=== PATIENT | male | born 1975 | race Two or more races ===

== ENCOUNTER 2025-02-26 13:46 | Outpatient (REF) | payer OTHER, SELFPAY ==
--- NOTE | ~2025-02-26 | XR_ITS ---
EXAMINATION: XR KNEE 3 VIEWS RIGHT HISTORY: M25.569 - Pain in unspecified knee COMPARISON: There are no prior studies available for comparison. FINDINGS: Standing AP views of both knees and additional lateral and sunrise patellar views of the right knee are submitted. Osseous mineralization is normal. There is no fracture or dislocation. There is mild to moderate osteoarthritis of the patellofemoral compartment, with joint space narrowing and osteophyte formation. The soft tissues are unremarkable. There is no joint effusion. XR/XR knee RT 3V IMPRESSION: Mild to moderate osteoarthritis of the patellofemoral compartment. Electronically signed by: Nas Adair MD 02/27/2025 08:31 AM EDT
--- OUTSIDE RECORDS SUMMARY | 2025-02-27 14:07 | XMS_ITS | Clinical Summary ---
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
== END 2025-02-26 13:47 | disposition home or self-care (01) ==
LOC: HO.HOSX 13:46
PROVIDERS: Visit Provider Physician Assistant
DX: M25.561 Pain in right knee (principal)
CPT/HCPCS: 73562

== ENCOUNTER 2025-02-26 14:30 | Outpatient (AMB) | payer OTHER, SELFPAY ==
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
[2025-02-26 14:48] VITALS: BMI 42.5
--- OUTSIDE RECORDS SUMMARY | 2025-02-26 17:13 | XMS_ITS | Clinical Summary ---
Author Organization Patient Business Ser [facility] Address [address] [place] [address] Care Team Providers Care Newsagent Name Role Phone Unavailable Primary Care Provider Unavailabl e Social History Tobacco Use Types Packs/Day Years Used Date Smoking Tobacco: Never Assessed Sex and Gender Information Value Date Recorded Sex Assigned at Not on file Legal Sex Male 12:59 AM EST Gender Identity Not on file Sexual Orientation Not on file Plan of Treatment Health Maintenance Due Date Last Done Comments DTaP,Tdap,and Td Vaccines (1 - Tdap) 1996 Hepatitis B Vaccines (1 of 3 - 19+ 3-dose series) 1996 COVID-19 Vaccine (2023-2 5 season) 2024 Cholesterol Screening (Lipid Panel) 09/13/2024 Colorectal Cancer Screening: Colonoscopy 09/13/2024 Depression Screening 09/13/2024 HIV Screening 09/13/2024 Hepatitis C Screening 09/13/2024 Social Influencers of Health Screening 09/13/2024 Influenza Vaccine (Season Ended) 2025 HIB Vaccines Aged Out No longer eligi ble based on patient's age to complete this topic HPV Vaccines Aged Out No longer eligi ble based on patient's age to complete this topic Hepatitis A Vaccines Aged Out No long er eligible based on patient's age to complete this topic IPV Vaccines Aged Out No longer eligi ble based on patient's age to complete this topic MMR Vaccines Aged Out No longer eligi ble based on patient's age to complete this topic Meningococcal ACWY Vaccine Aged Out N o longer eligible based on patient's age to complete this topic Meningococcal B Vaccine Aged Out No l onger eligible based on patient's age to complete this topic Pneumococcal Vaccine: Pediat rics (0 to 5 Years) and At-Risk Patients (6 to 64 Years) Aged Out No longer eligible b ased on patient's age to complete this topic RSV Immunization Patients Un miguel 20 months Aged Out No longer eligible b ased on patient's age to complete this topic Varicella Vaccines Aged Out No longer eligible based on patient's age to complete this topic
== END 2025-02-26 15:05 | disposition home or self-care (01) ==
LOC: HO.HOS 14:30
PROVIDERS: Visit Provider Physician Assistant
DX: S80.01XA Contusion of right knee, initial encounter (principal)
CPT/HCPCS: 99203

== ENCOUNTER → 2025-02-26 14:32 | Outpatient (BNV) | payer OTHER, SELFPAY | PROVIDERS: Visit Provider Radiology Diagnostic Radiology | DX: M17.11 Unilateral primary osteoarthritis, right knee (principal) | CPT/HCPCS: 73562 ==

== ENCOUNTER 2025-04-07 19:22 | Outpatient (REF) | payer OTHER, SELFPAY ==
--- NOTE | ~2025-04-07 | MR_ITS ---
EXAMINATION: MRI RIGHT KNEE WITHOUT CONTRAST HISTORY: S80.01XA - Contusion of right knee, initial encounter COMPARISON: Correlation is made with plain films of the right knee dated 02/26/2025. TECHNIQUE: Coronal T1 and fat-suppressed proton density, sagittal proton density and fat-suppressed proton density, and axial fat suppressed T2 weighted MR images of the right knee were obtained. FINDINGS: Bone marrow: Bone marrow signal intensity is normal. Joint effusion: There is no joint effusion. Julien's cyst: There is no Julien's cyst. Articular cartilage: There is moderate to severe osteoarthritis of the patellofemoral compartment with cartilage loss and small osteophyte formation. Muscles/soft tissues: The visualized muscles demonstrate normal signal intensity. There is a 3.6 x 1.7 x 1.5 cm multiseptated cystic structure in the popliteal fossa which likely represents a ganglion cyst. Anterior cruciate ligament: Intact Posterior cruciate ligament: Intact Medial collateral ligament: Intact Lateral collateral ligament: Intact Medial meniscus: Intact Lateral meniscus: Intact Flexor mechanism: The popliteus, gastrocnemius, and hamstring tendons are intact. Quadriceps tendon: Intact Patellar tendon: Intact Patellar retinacula: Intact MR/MR knee RT wo con IMPRESSION: 1. Moderate to severe osteoarthritis of the patellofemoral compartment. 2. 3.6 x 1.7 x 1.5 cm probable popliteal fossa ganglion cyst. Electronically signed by: Nas Adair MD 04/08/2025 08:11 AM EDT
== END 2025-04-07 19:23 | disposition home or self-care (01) ==
LOC: HO.MRI 19:22
PROVIDERS: Visit Provider Physician Assistant
DX: S80.01XA Contusion of right knee, initial encounter (principal)
CPT/HCPCS: 73721

== ENCOUNTER → 2025-04-07 19:38 | Outpatient (BNV) | payer OTHER, SELFPAY | PROVIDERS: Visit Provider Radiology Diagnostic Radiology | DX: M17.11 Unilateral primary osteoarthritis, right knee (principal) | CPT/HCPCS: 73721 ==

== ENCOUNTER 2025-06-02 10:00 | Outpatient (AMB) | payer OTHER, SELFPAY ==
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
[2025-06-02 10:10] VITALS: BMI 42.5
--- OUTSIDE RECORDS SUMMARY | 2025-06-02 10:54 | XMS_ITS | Clinical Summary ---
Author Organization Patient Business Ser [facility] Address [address] [place] [address] Care Team Providers Care Manager Harbor Name Role Phone Unavailable Primary Care Provider [...] Influencers of Health Screening 09/13/2024 Influenza Vaccine (#1) 2025 HIB Vaccines Aged Out No longer [...] 5 Years) and At-Risk Patients (6 to 49 Years) Aged Out No longer eligible b ased on patient's age to complete this topic RSV Immunization Patients Un miguel 20 months Aged Out No longer eligible b ased on patient's age to complete this topic Varicella Vaccines Aged Out No longer eligible based on patient's age to complete this topic
== END 2025-06-02 10:20 | disposition home or self-care (01) ==
LOC: HO.HOS 10:00
PROVIDERS: Visit Provider Physician Assistant
DX: M17.11 Unilateral primary osteoarthritis, right knee (principal); S80.01XD Contusion of right knee, subsequent encounter
CPT/HCPCS: 99214